=== PATIENT | male | born 1975 | race Caucasian/White ===

== ENCOUNTER 2016-07-23 10:33 | Emergency (ER) | payer MEDICAID ==
[~2016-07-23] VITALS: Wt 72.5 kg
[~2016-07-23 10:33] MED LIST: TRAM50TA2 PO
--- NOTE | 2016-07-23 13:32 | ERA ---
ER Documentation Chief Complaint Date/Time DATE: 07/23/16 TIME: 13:27 Chief Complaint RIGHT TESTICULAR HERNIA MORE PAIN TODAY WITH VOMITING. SEEN FOR SAME HPI Patient presents with a history of a chronic right inguinal hernia. Patient is having problems with the hernia recurrently coming out after mild to moderately strenuous movements. Patient denies pain, duration, bowel or bladder dysfunction, testicular pain, tenderness to palpation history of diabetes smoking. Patient has not been seen by a primary care physician or surgeon. Has not done anything to this point to relieve the symptoms. ROS All systems reviewed and are negative except as per history of present illness. Medications Home Meds Active Scripts Tramadol HCl (Tramadol HCl) 50 Mg Tablet, 50 MG PO Q4 Y for PAIN, #20 TAB Prov:RADHA SANDOVAL MD 04/13/16 Allergies Allergies: Coded Allergies: No Known Allergy (Unverified , 04/13/16) PMhx/Soc Medical and Surgical Hx: pt denies Medical Hx, pt denies Surgical Hx Hx Alcohol Use: No Hx Substance Use: No Physical Exam Vitals Vital Signs Date Time Temp Pulse Resp B/P Pulse Ox O2 Delivery O2 Flow Rate FiO2 07/23/16 10:37 98.7 75 20 131/86 99 Physical Exam Const: Obese 41-year-old man Head: Atraumatic Eyes: Normal Conjunctiva ENT: Normal External Ears, Nose and Mouth. Neck: Full range of motion..~ No meningismus. Resp: Clear to auscultation bilaterally Cardio: Regular rate and rhythm, no murmurs Abd: Soft, non tender, non distended. Normal bowel sounds. Visible hernia able to push back in, no tenderness to palpation. Skin: No petechiae or rashes Back: No midline or flank tenderness Ext: No cyanosis, or edema Neur: Awake and alert Psych: Normal Mood and Affect Procedures/MDM Patient had a chronic history of this hernia. Is not being followed by a primary care physician or surgeon. Patient denies tenderness or any red flags to suggest incarceration or strangulation. The hernia is recurrent so I am going to give him a list of the general surgeons in the area. Advising him to call him up and see if any of them will take him as a candidate for surgery due to the recurrent nature of the hernia. Patient is in no distress and denies any sort of medication for pain. Departure Diagnosis: Primary Impression: Recurrent right inguinal hernia Additional Impression: Abdominal pain Condition: Stable Patient Instructions: Hernia (Inguinal, Ventral, Umbilical) Referrals: Sommer ALBERTO PHILIP MD BROOKENTHAL,CHRIS CARABALLO MD, MD, FREDERICK C FARID,RAFA BELLA MD, M.D., SAID MD JIMENEZ, PATRICIA PA KASHANI, SAMUEL MD KIRBY, SHELLEY B. PA KOSARI, KAMBIZ M.D. LOMIS, THOMAS MD PENDING SALE TO [facility] () Usted se kang hecho un examen mdico de control que le indica que no est en benjamin condicin que requiera tratamiento urgente en el Departamento de Emergencia. Un estudio ms profundo y el tratamiento de edgar condicin pueden esperar sin ningn riesgo hasta que usted sea atendida/o en el consultorio de edgar mdico o benjamin cl vidhya. Es responsabilidad suya arreglar benjamin jimenez para el seguimiento del yasmeen. MANEJO DE CONDICIONES NO URGENTES EN EL FUTURO 1) Si usted tiene un mdico de atencin primaria: Usted debera llamar a edgar mdico de atencin primaria antes de venir al departamento de emergencia. Despus de las horas de consultorio, edgar doctor o edgar asociado/a est disponible por telfono. El mdico o enfermero de eliane en el servicio telefnico puede asesorarle por brendan medio para atender el problema, o yasmeen contrario se puede programar benjamin jimenez. 2) Si usted no tiene un mdico de atencin primaria: Llame al mdico o clnica de referencia que aparece abajo chase las horas de consultorio para hacer benjamin jimenez para que le vean. CLINICAS: [facility] [phone] [facility] [phone] [address] [place] [phone] [place] [phone] [place] [address] [phone] [facility] [phone] [address] [facility] YOU HAVE RECEIVED A MEDICAL SCREENING EXAM AND THE RESULTS INDICATE THAT YOU DO NOT HAVE A CONDITION THAT REQUIRES URGENT TREATMENT IN THE EMERGENCY DEPARTMENT. FURTHER EVALUATION AND TREATMENT OF YOUR CONDITION CAN WAIT UNTIL YOU ARE SEEN IN YOUR DOCTORS OFFICE WITHIN THE NEXT 1-2 DAYS. IT IS YOUR RESPONSIBILITY TO MAKE AN APPOINTMENT FOR FOLOW-UP CARE. IF YOU HAVE A PRIMARY DOCTOR --you should call your primary doctor and schedule an appointment IF YOU DO NOT HAVE A PRIMARY DOCTOR YOU CAN CALL OUR PHYSICIAN REFERRAL HOTLINE AT IF YOU CAN NOT AFFORD TO SEE A PHYSICIAN YOU CAN CHOSE FROM THE FOLLOWING [facility] [phone] [address] [facility] [address] [facility]. [facility] [phone] [facility] [address] [facility] [phone] [facility]. [facility] [address] [facility] Additional Instructions: Return to ER if unable to push the hernia back in. Contact the provided surgeons to see if any of them will consider you a candidate for surgery. LAURA RANDOLPH PA-C Jul 23, 2016 13:32
== END 2016-07-23 13:47 | disposition home or self-care (01) ==
LOC: FTE 10:33
DX: K40.91 Unilateral inguinal hernia, without obstruction or gangrene, recurrent (principal); R10.31 Right lower quadrant pain
CPT/HCPCS: 99282